=== PATIENT | male | born 1935 ===

== ENCOUNTER 2021-12-13 19:24 | Emergency (ER) | payer MEDICARE ==
[~2021-12-13 19:24] MED LIST: AMIODARONE200 MG PO; ASPIRIN CHEWABL81 MG PO; ASPIRIN EC81 MG PO; ASPIRIN325 MG PO; B-121000 MCG; BACTRIM DS1 TAB PO; CARVEDILOL25 MG PO; CORDARONE/200 MG/TAB PO; COUMADIN2.5 MG PO; COUMADIN5 MG PO; COUMADIN7.5 MG PO; DIGITEK0.125 MG PO; DIGOXIN0.125 MG PO; DIUREX; DOXAZOSIN1 M1 PO; DOXAZOSIN1 MG PO; E 10001000 UNIT PO; ELDERTONIC PO; FERROUS SULF140 MG PO; FISH OIL1000 MG PO; FISH OIL500 MG PO; FLOMAX0.4 M1 PO; FUROSEMIDE40 MG PO; GLIPIZIDE10 MG PO; KLOR-CON M2020 MEQ PO; LANOXIN0.125 MG PO; LANTUS SOLOSTAR SC; LANTUS100 MG/ML SC; LEVOTHYROXIN50 MCG PO; LIPITOR40 MG PO; LISINOPRIL10 MG PO; LISINOPRIL20 M1 PO; LORTAB 7.57.5 MG PO; METFORMIN1000 MG PO; METOLAZONE2.5 MG PO; MULTIVITAMI9 PO; NOVOLOG100 IU/1 M SC; PRANDIN PO; PRANDIN1 MG PO; SULFAMETHOXAZOL1 TA1 PO; VISION FORMULA/LUTEI PO; VITAMIN C1000 MG PO; WARFARIN10 MG PO; WARFARIN2.5 MG PO; WARFARIN5 MG PO; [UNRECOGNIZED DRUG - OTHER] PO; [UNRECOGNIZED DRUG - OTHER] SC; [UNRECOGNIZED DRUG - SUPPLY] XX
== END 2021-12-13 19:26 | disposition expired ==
LOC: ED 19:24 → EDBD 19:24 → ED 19:25
PROC: 5A12012 Performance of Cardiac Output, Single, Manual (ICD-10-PCS; principal; 2021-12-13)
DX: I46.9 Cardiac arrest, cause unspecified (principal); I10 Essential (primary) hypertension; E11.9 Type 2 diabetes mellitus without complications; Z79.84 Long term (current) use of oral hypoglycemic drugs; Z79.4 Long term (current) use of insulin